=== PATIENT | female | born 1990 | race Caucasian/White ===

== ENCOUNTER 2020-05-16 11:06 | Outpatient (REF) | payer SELFPAY ==
--- NOTE | 2020-05-16 09:00 | PAPFT_PTH ---
PATIENT: DOMENIC ALLISON LOC: [facility] U#:[id number] AGE/SX: 29/F ROOM: RE05/16/[address]: Leelee Wilburn NP : 1990 BED: DIS: 05/16/2020 SPEC #: [id number] RECD: 05/16/20 12:55 STATUS: [place] REKayode #: [id number] ALL: 05/16/20 09:[address]: Leelee Wilburn NP DEPT: [facility] Cytology RECD BY: Alana Aguilera ENTERED: 05/16/20 12:56 SP TYPE: PAPFT OTHR DR: Galina Kaufman Tissues: 1 - CX/ENDOCX FOR PAP SMEARS Procedures: PAP THIN PREP/[facility] Screening Comments: [id number] (CHLAMYDIA/GC)
[2020-05-17 13:51] LABS: GC Result Negative (Negative)
[2020-05-17 16:39] LABS: Chlamydia Result Positive (Negative)
== END 2020-05-16 11:26 ==
LOC: LBN 11:06
PROVIDERS: PCP Nurse Practitioner Family; Visit Provider Nurse Practitioner Women's Health
DX: Z12.79 Encounter for screening for malignant neoplasm of other genitourinary organs (principal); Z11.3 Encounter for screening for infections with a predominantly sexual mode of transmission; Z12.4 Encounter for screening for malignant neoplasm of cervix
CPT/HCPCS: 87491; 87591; 88142